=== PATIENT | female | born 2000 | race Asian ===

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

== ENCOUNTER → 2019-01-02 | Outpatient (CLI) | payer OTHER ==
--- NOTE | 2019-01-02 09:00 | US ---
EXAMINATION TYPE: US abdomen complete DATE OF EXAM: 01/02/2019 COMPARISON: NONE CLINICAL HISTORY: R10.12 LUQ Pain,R10.11 RUQ Pain,R07.81 Rt Side Carl. EXAM MEASUREMENTS: Liver Length: 9.7 cm Gallbladder Wall: 0.2 cm CBD: 0.3 cm Spleen: 8.5 cm Right Kidney: 10.1 x 4.3 x 4.3 cm Left Kidney: 9.9 x 5.0 x 4.6 cm Pancreas: visualized portions wnl Liver: wnl Gallbladder: wnl Evidence for sonographic Oglesby's sign: No CBD: wnl Spleen: wnl Right Kidney: No hydronephrosis or masses seen Left Kidney: No hydronephrosis or masses seen Upper IVC: wnl Abd Aorta: wnl The visualized liver is homogenous. The intrahepatic portion of the IVC and visualized abdominal aor ta through the bifurcation are within normal limits. There is no evidence of cholelithiasis. Common bile duct is unremarkable. The visualized portions of the pancreas are homogenous. The spleen is u nremarkable. Kidneys are symmetric and free of hydronephrosis. No renal lesions are seen. IMPRESSION: Unremarkable study.
== END | disposition home or self-care (01) ==
LOC: RADUSWWP 06:55
PROVIDERS: ATTEND Family Medicine
DX: R10.12 Left upper quadrant pain (principal); R10.11 Right upper quadrant pain; R07.81 Pleurodynia
CPT/HCPCS: 76700